=== PATIENT | male | born 1960 | race Caucasian/White ===

== ENCOUNTER 2017-03-26 13:14 | Emergency (ER) | payer OTHER ==
[~2017-03-26 13:14] MED LIST: ISOVUE-370 76%-LOCM 1 ML ONE
[2017-03-26] MEDS ORDERED: Morphine 4 MG/ML VIAL ONE (13:32)
[2017-03-26] MEDS ORDERED: Ketorolac Tromethamine 30 MG/ML VIAL ONE (14:32)
[2017-03-26 14:33] LABS: #Lymphocytes 0.8 thou/uL (1.20-3.40); #Monocytes 0.4 thou/uL (0.11-0.59); #Neutrophils 9.7 thou/uL (1.40-6.50); %Basophils 0.3 % (0.0-1.0); %Eosinophils 0.2 % (0.0-10.0); %Lymphocytes 7.3 % (21.0-51.0); %Monocytes 3.6 % (0.0-10.0); Hematocrit 47.5 % (42.0-52.0); Mean Platelet Volume 6.7 fL (7.4-10.4); Red Blood Cell (RBC) Count 5.28 mill/uL (4.70-6.10)
[2017-03-26 14:48] LABS: Lactic Acid - Sepsis 2.9 mmol/L (0.5-2.2)
[2017-03-26 14:57] LABS: Troponin I Less than 0.010 ng/mL (< 0.028)
[2017-03-26 14:58] LABS: ALT (SGPT) 35 U/L (8-55); AST (SGOT) 25 U/L (5-34); Alkaline Phosphatase 58 U/L (40-150); Anion Gap 13 mmol/L (10-20); BUN (Urea Nitrogen) 15 mg/dL (8.4-25.7); Calc. Creatinine Clearance 0 mL/min (70-130); Calcium 9.6 mg/dL (7.8-10.44); Carbon Dioxide 26 mmol/L (22-29); Chloride 101 mmol/L (98-107); Estimated GFR-MDRD 66; Globulin 3.4 g/dL (2.4-3.5); Lipase 10 U/L (8-78); Protein, Total 7.7 g/dL (6.0-8.3)
--- NOTE | 2017-03-26 15:13 | CT ---
CONTRAST ENHANCED CT IMAGES ABDOMEN AND PELVIS: HISTORY: Left-sided abdominal pain. FINDINGS: Contrast-enhanced CT images of the abdomen and pelvis were obtained after administration of IV contra st. The lung bases are unremarkable. No evidence of free intraperitoneal air is seen. The liver contains numerous hypodense areas compatible with hepatic cysts. Numerous gallstones seen in the gallbladder. The pancreas is unremarkable. No evidence of intrahepatic biliary dilatation is seen. The common bile duct is not dilated. The spleen is unremarkable. No dilated loops of small bowel or colon are seen. No evidence of free intraperitoneal air or fluid is seen. Cortical cyst is seen in the left kidney. No evidence of renal calculi seen. IMPRESSION: Cholelithiasis. POS: [id number]
[2017-03-26 15:59] LABS: Bilirubin Negative (Negative); Blood, Urine Negative (Negative); Glucose, Urine (Dipstick) 100 mg/dL (Negative); Ketone, Urine 15 mg/dL (Negative); Protein, Urine (Dipstick) 30 mg/dL (Neg-Trace)
[2017-03-26 16:01] LABS: Hyaline Casts/LPF 0-3 HYALINE CAST LPF (0-3 Hyaline); RBC/HPF 0-3 HPF (0-3); Squamous Epithelial None Seen HPF (0-3); WBC/HPF 0-3 HPF (0-3)
[2017-03-26 16:05] LABS: Nitrite Positive (Negative)
[2017-03-26] MEDS ORDERED: Potassium Chloride 20 MEQ TAB ONE (16:12)
[2017-03-26 16:13] LABS: Bacteria/HPF Rare-Few HPF (None Seen)
[2017-03-26] MEDS ORDERED: Labetalol HCl 100 MG/20 ML VIAL ONE (18:08)
== END 2017-03-26 20:05 | disposition home or self-care (01) ==
LOC: ERS 13:14
DX: R10.32 Left lower quadrant pain (principal); I10 Essential (primary) hypertension; R10.31 Right lower quadrant pain
CPT/HCPCS: 36415; 74177; 80053; 81003; 81015; 82553; 83605; 83690; 84484; 85025; 87086; 93005; 96361; 96374; 96375; J1885; J2270

== ENCOUNTER 2021-10-16 22:57 | Emergency (ER) | payer BC, OTHER ==
[2021-10-17] MEDS ORDERED: Morphine 4 MG/ML VIAL ONE (01:20)
[2021-10-17] MEDS ORDERED: Ondansetron PF 4 MG/2 ML Vial ONE (01:20)
[2021-10-17 01:46] LABS: #Basophils 0.1 thou/uL (0.0-0.2); #Eosinphils 0.1 thou/uL (0.0-0.7); #Lymphocytes 2.3 thou/uL (1.20-3.40); #Monocytes 0.9 thou/uL (0.11-0.59); #Neutrophils 8.6 thou/uL (1.40-6.50); %Basophils 0.5 % (0.0-1.0); %Eosinophils 0.6 % (0.0-10.0); %Lymphocytes 19.3 % (21.0-51.0); %Monocytes 7.8 % (0.0-10.0); %Neutrophils 71.8 % (42.0-75.0); Hemoglobin 17.1 g/dL (14.0-18.0); Mean Corpuscular HGB CONC 34.6 g/dL (32.0-36.0); Mean Corpuscular Hemoglobin 31.7 pg (27.0-31.0); Mean Corpuscular Volume 91.5 fL (78.0-98.0); Mean Platelet Volume 7.3 fL (7.4-10.4); Platelet Count 281 thou/uL (130-400); RBC Distribution Width 12.4 % (11.5-14.5); Red Blood Cell (RBC) Count 5.41 mill/uL (4.70-6.10)
[2021-10-17 02:05] LABS: ALT (SGPT) 24 U/L (8-55); AST (SGOT) 19 U/L (5-34); Albumin 4.7 g/dL (3.4-4.8); Alkaline Phosphatase 58 U/L (40-110); Anion Gap 15 mmol/L (10-20); BUN (Urea Nitrogen) 16 mg/dL (8.4-25.7); Bilirubin, Total 1.2 mg/dL (0.2-1.2); Calc. Creatinine Clearance 0 mL/min (70-130); Calcium 9.7 mg/dL (7.8-10.44); Carbon Dioxide 28 mmol/L (23-31); Chloride 100 mmol/L (98-107); Estimated GFR 54; Globulin 3.8 g/dL (2.4-3.5); Glucose 124 mg/dL (80-115); Lipase 19 U/L (8-78); Protein, Total 8.5 g/dL (5.8-8.1); Sodium 141 mmol/L (136-145)
[2021-10-17 02:16] LABS: Potassium 2.4 mmol/L (3.5-5.1)
[2021-10-17] MEDS ORDERED: Potassium Chloride 20 MEQ TAB ONE (02:41)
[2021-10-17] MEDS ORDERED: Mag-Al 1200 mg/1200 mg/30 ML UDCUP ONE (02:42)
[2021-10-17] MEDS ORDERED: Lidocaine Viscous Sol 2% 15 ml UD Cup ONE (02:42)
[2021-10-17 04:19] LABS: Bacteria/HPF None Seen HPF (None Seen); Bilirubin Negative (Negative); Blood, Urine Negative (Negative); Clarity Clear (Clear); Glucose, Urine (Dipstick) Normal (Negative); Ketone, Urine Negative (Negative); Leukocyte Negative Leu/uL (Negative); Nitrite Negative (Negative); Protein, Urine (Dipstick) 70 mg/dL (Neg-Trace); RBC/HPF 0-3 HPF (0-3); Specific Gravity, Urine 1.023 (1.002-1.036); Squamous Epithelial 0-3 HPF (0-3); Urobilinogen Normal mg/dL (Less than 2); WBC/HPF 0-3 HPF (0-3)
== END 2021-10-17 03:40 | disposition home or self-care (01) ==
LOC: ERS 22:57
DX: K57.92 Diverticulitis of intestine, part unspecified, without perforation or abscess without bleeding (principal); E87.6 Hypokalemia; I49.3 Ventricular premature depolarization; I10 Essential (primary) hypertension; Z87.442 Personal history of urinary calculi
CPT/HCPCS: 80053; 81003; 81015; 83690; 85025; 87086; 93005; 96361; 96374; 96375; J2270; J2405

== ENCOUNTER 2022-05-29 06:38 | Inpatient (IN) | payer BC ==
[2022-05-29] MEDS ORDERED: Ketorolac Tromethamine 30 MG/ML VIAL ONE (08:54)
[2022-05-29] MEDS ORDERED: Levofloxacin 500 mg/D5W 100 ml Premix Bag ONE (08:54)
[2022-05-29] MEDS ORDERED: Glycopyrrolate 0.2 MG/ML 5 ML SYRINGE ONE (10:27)
[2022-05-29] MEDS ORDERED: NEOSTIGMINE 3 MG/3 ML SYR 3 MG/3 ML SYRINGE ONE (10:27)
[2022-05-29] MEDS ORDERED: ePHEDrine 50 MG/ML VIAL ONE (10:27)
[2022-05-29] MEDS ORDERED: Bupivacaine HCl 0.5%/Epinephrine 1:200,000/PF 30 ml Vial ONE (10:31)
[2022-05-29] MEDS ORDERED: Fentanyl 250 MCG/5 ML VIAL ONE (10:34)
[2022-05-29] MEDS ORDERED: Lidocaine 1% PF 5 ML VIAL ONE (10:49)
[2022-05-29] MEDS ORDERED: PROPOFOL 200 MG/20 ML VIAL ONE (10:49)
[2022-05-29] MEDS ORDERED: Rocuronium Bromide 10 MG/ML (10ML VIAL) ONE (10:49)
[2022-05-29] MEDS ORDERED: Dexamethasone 20 MG/5 ML VIAL ONE (10:49)
[2022-05-29] MEDS ORDERED: Ondansetron PF 4 MG/2 ML Vial ONE (10:49)
[2022-05-29] MEDS ORDERED: Indomethacin 50 MG SUPP ONE (11:18)
[2022-05-29] MEDS ORDERED: Iopamidol 45 ML ONE (11:19)
[2022-05-29] MEDS ORDERED: SUGAMMADEX SODIUM 200 MG/2 ML VIAL ONE (12:49)
[2022-05-29] MEDS ORDERED: Promethazine HCl 25 MG/ML VIAL IM PRN (13:00)
[2022-05-29] MEDS ORDERED: Ondansetron HCl/PF 4 MG/2 ML Vial IVP PRN (13:00)
[2022-05-29] MEDS ORDERED: Ondansetron PF 4 MG/2 ML Vial IVP PRN (13:44)
[2022-05-29] MEDS ORDERED: TETANUS, DIPHTHERIA TOX,ADULT (TDVAX) 0.5 ML VIAL IM ONE (13:44)
[2022-05-29] MEDS ORDERED: hydrALAZINE 20 MG/ML VIAL SLOW IVP PRN (13:44)
[2022-05-29] MEDS ORDERED: Ibuprofen 600 MG TAB PO PRN (13:47)
[2022-05-29] MEDS ORDERED: Acetaminophen 500 MG TAB PO PRN (13:47)
[2022-05-29] MEDS ORDERED: Potassium Chloride 20 MEQ TAB PO SCH (14:00)
[2022-05-29] MEDS ORDERED: Potassium Chloride 20 MEQ in Lactated Ringer's 1,000 ML IV SCH (14:00)
[2022-05-29] MEDS ORDERED: Acetaminophen 500 MG TAB PO SCH (15:00)
[2022-05-29] MEDS ORDERED: Lactated Ringer's 1,000 ML IV SCH (16:15)
[2022-05-29 16:32] LABS: #Lymphocytes 1.1 thou/uL (1.20-3.40); #Monocytes 0.3 thou/uL (0.11-0.59); #Neutrophils 9.3 thou/uL (1.40-6.50); %Basophils 0.2 % (0.0-1.0); %Eosinophils 0.2 % (0.0-10.0); %Lymphocytes 10.3 % (21.0-51.0); %Monocytes 2.4 % (0.0-10.0); %Neutrophils 86.9 % (42.0-75.0); Hemoglobin 12.5 g/dL (14.0-18.0); Mean Corpuscular HGB CONC 35.6 g/dL (32.0-36.0); Mean Corpuscular Hemoglobin 32.1 pg (27.0-31.0); Mean Corpuscular Volume 90.4 fl (78.0-98.0); Platelet Count 262 10x3/uL (130-400); RBC Distribution Width 11.9 % (11.5-14.5); White Blood Cell (WBC) Count 10.7 10x3/uL (4.8-10.8)
[2022-05-29] MEDS ORDERED: Morphine 4 MG/ML VIAL SLOW IVP PRN (17:19)
[2022-05-29 17:22] LABS: Actual Bicarbonate (HCO3a) 16.9 mEq/L (22-28); Base Excess (BEa) -6.1 mEq/L (-2.0 to +3.0); CO2 Tension 26.7 mmHg (35.0-45.0); Calcium, Ionized (arterial) 1.11 mmol/L (1.12-1.30); Carboxyhemoglobin (COHb) 0.3 gm% (0.0-3.0); Hemoglobin (Hb) 12.6 g/dL (14.0-18.0); O2 Tension (PaO2), arterial 91.8 mmHg (> 80.0); Potassium - ABG Lab 3.89 mmol/L (3.70-5.30); pH, Arterial 7.42 (7.35-7.45)
[2022-05-29 17:26] LABS: Puncture Site RRA
[2022-05-29 17:48] LABS: Hemoglobin 11.9 g/dL (14.0-18.0)
[2022-05-29] MEDS: Lactated Ringer's 1,000 ML IV SCH ×2 (18:03→21:43)
[2022-05-29 20:19] LABS: #Lymphocytes 0.9 thou/uL (1.20-3.40); #Monocytes 0.3 thou/uL (0.11-0.59); #Neutrophils 7.5 thou/uL (1.40-6.50); %Basophils 0.2 % (0.0-1.0); %Eosinophils 0.4 % (0.0-10.0); %Lymphocytes 10.6 % (21.0-51.0); %Monocytes 3.3 % (0.0-10.0); %Neutrophils 85.5 % (42.0-75.0); Mean Corpuscular HGB CONC 35.5 g/dL (32.0-36.0); Mean Corpuscular Hemoglobin 32.5 pg (27.0-31.0); Mean Corpuscular Volume 91.6 fl (78.0-98.0); Mean Platelet Volume 7.1 fL (7.4-10.4); Platelet Count 227 10x3/uL (130-400); RBC Distribution Width 11.8 % (11.5-14.5); Red Blood Cell (RBC) Count 3.68 mill/uL (4.70-6.10); White Blood Cell (WBC) Count 8.7 10x3/uL (4.8-10.8)
[2022-05-29] MEDS ORDERED: Famotidine 20 MG TAB PO SCH (21:00)
[2022-05-30] MEDS: traMADol HCl 50 MG TAB PO PRN ×2 (00:41→20:33)
[2022-05-30 03:50] LABS: #Lymphocytes 1.3 thou/uL (1.20-3.40); #Monocytes 0.8 thou/uL (0.11-0.59); %Basophils 0.3 % (0.0-1.0); %Eosinophils 0.2 % (0.0-10.0); %Lymphocytes 12.5 % (21.0-51.0); %Monocytes 8.2 % (0.0-10.0); %Neutrophils 78.9 % (42.0-75.0); Hemoglobin 10.2 g/dL (14.0-18.0); Mean Corpuscular HGB CONC 35.9 g/dL (32.0-36.0); Mean Corpuscular Hemoglobin 32.6 pg (27.0-31.0); Mean Corpuscular Volume 90.8 fl (78.0-98.0); Mean Platelet Volume 6.9 fL (7.4-10.4); Platelet Count 228 10x3/uL (130-400); RBC Distribution Width 11.8 % (11.5-14.5); Red Blood Cell (RBC) Count 3.14 mill/uL (4.70-6.10); White Blood Cell (WBC) Count 10.1 10x3/uL (4.8-10.8)
[2022-05-30 04:10] LABS: ALT (SGPT) 52 U/L (8-55); AST (SGOT) 33 U/L (5-34); Albumin 2.9 g/dL (3.4-4.8); Alkaline Phosphatase 40 U/L (40-110); Anion Gap 15 mmol/L (10-20); BUN (Urea Nitrogen) 20 mg/dL (8.4-25.7); Bilirubin, Total 0.5 mg/dL (0.2-1.2); Calc. Creatinine Clearance 82 mL/min (70-130); Calcium 8.3 mg/dL (7.8-10.44); Carbon Dioxide 21 mmol/L (23-31); Chloride 105 mmol/L (98-107); Estimated GFR 53; Globulin 2.3 g/dL (2.4-3.5); Glucose 126 mg/dL (80-115); Lipase 62 U/L (8-78); Potassium 3.9 mmol/L (3.5-5.1); Protein, Total 5.2 g/dL (5.8-8.1); Sodium 137 mmol/L (136-145)
[2022-05-30] MEDS: Lactated Ringer's 1,000 ML IV SCH ×3 (05:59→20:35)
[2022-05-30] MEDS ORDERED: Iopamidol-370 76% 500 ML 1 ML ONE (08:58)
[2022-05-30 11:51] LABS: #Eosinphils 0.1 thou/uL (0.0-0.7); #Lymphocytes 2.1 thou/uL (1.20-3.40); #Monocytes 1.1 thou/uL (0.11-0.59); %Eosinophils 0.5 % (0.0-10.0); %Lymphocytes 18.4 % (21.0-51.0); %Neutrophils 71.1 % (42.0-75.0); Hemoglobin 9.5 g/dL (14.0-18.0); Mean Corpuscular Hemoglobin 32.2 pg (27.0-31.0); Platelet Count 225 10x3/uL (130-400); RBC Distribution Width 11.9 % (11.5-14.5); Red Blood Cell (RBC) Count 2.93 mill/uL (4.70-6.10); White Blood Cell (WBC) Count 11.3 10x3/uL (4.8-10.8)
[2022-05-30 18:01] LABS: #Eosinphils 0.1 thou/uL (0.0-0.7); #Lymphocytes 1.5 thou/uL (1.20-3.40); #Monocytes 1.1 thou/uL (0.11-0.59); #Neutrophils 9.6 thou/uL (1.40-6.50); %Basophils 0.3 % (0.0-1.0); %Eosinophils 0.5 % (0.0-10.0); %Lymphocytes 11.9 % (21.0-51.0); %Monocytes 8.9 % (0.0-10.0); %Neutrophils 78.4 % (42.0-75.0); Hemoglobin 8.9 g/dL (14.0-18.0); Mean Corpuscular HGB CONC 35.2 g/dL (32.0-36.0); Mean Corpuscular Hemoglobin 32.1 pg (27.0-31.0); Mean Corpuscular Volume 91.1 fl (78.0-98.0); Mean Platelet Volume 6.8 fL (7.4-10.4); Platelet Count 209 10x3/uL (130-400); Red Blood Cell (RBC) Count 2.77 mill/uL (4.70-6.10); White Blood Cell (WBC) Count 12.3 10x3/uL (4.8-10.8)
[2022-05-30] MEDS: Ondansetron ODT 4 MG TAB PO PRN (20:32)
[2022-05-30] MEDS: Albumin 25% 25 GM/100 ML BOT IVPB SCH (20:34)
[2022-05-31] MEDS: Albumin 25% 25 GM/100 ML BOT IVPB SCH ×2 (01:41→08:12)
[2022-05-31] MEDS: traMADol HCl 50 MG TAB PO PRN (01:43)
[2022-05-31] MEDS: Lactated Ringer's 1,000 ML IV SCH ×3 (01:43→17:50)
[2022-05-31] MEDS: Ondansetron ODT 4 MG TAB PO PRN (05:32)
[2022-05-31 06:25] LABS: #Eosinphils 0.1 thou/uL (0.0-0.7); #Lymphocytes 1.4 thou/uL (1.20-3.40); #Neutrophils 7.1 thou/uL (1.40-6.50); %Basophils 0.1 % (0.0-1.0); %Eosinophils 0.6 % (0.0-10.0); %Lymphocytes 14.7 % (21.0-51.0); %Monocytes 10.8 % (0.0-10.0); %Neutrophils 73.9 % (42.0-75.0); Mean Corpuscular Hemoglobin 33.2 pg (27.0-31.0); Mean Corpuscular Volume 92.2 fl (78.0-98.0); Mean Platelet Volume 6.9 fL (7.4-10.4); Platelet Count 184 10x3/uL (130-400); RBC Distribution Width 12.2 % (11.5-14.5); White Blood Cell (WBC) Count 9.5 10x3/uL (4.8-10.8)
[2022-05-31 07:17] LABS: ALT (SGPT) 33 U/L (8-55); AST (SGOT) 18 U/L (5-34); Albumin 3.8 g/dL (3.4-4.8); Alkaline Phosphatase 35 U/L (40-110); Anion Gap 12 mmol/L (10-20); BUN (Urea Nitrogen) 22 mg/dL (8.4-25.7); Bilirubin, Total 0.7 mg/dL (0.2-1.2); Calc. Creatinine Clearance 97 mL/min (70-130); Calcium 8.7 mg/dL (7.8-10.44); Carbon Dioxide 24 mmol/L (23-31); Chloride 104 mmol/L (98-107); Estimated GFR 62; Glucose 119 mg/dL (80-115); Potassium 3.4 mmol/L (3.5-5.1); Protein, Total 5.8 g/dL (5.8-8.1); Sodium 137 mmol/L (136-145)
[2022-05-31] MEDS ORDERED: Morphine 4 MG/ML VIAL SLOW IVP PRN (08:42)
[2022-05-31] MEDS ORDERED: traMADol HCl 50 MG TAB PO PRN ×2 (08:42)
[2022-05-31] MEDS: Metoprolol Tartrate 50 MG TAB PO SCH ×2 (08:54→20:49)
[2022-05-31] MEDS ORDERED: Famotidine/PF 20 mg/2ml Vial SLOW IVP SCH (09:00)
[2022-05-31 09:04] LABS: Magnesium 1.9 mg/dL (1.6-2.6); Phosphorus 3.2 mg/dL (2.3-4.7)
[2022-05-31] MEDS ORDERED: Magnesium 2 GM/50 ML(in water) 2 GM in Premix Bag 1 BAG IVPB SCH (10:30)
[2022-05-31 10:37] LABS: Hemoglobin 7.8 g/dL (14.0-18.0)
[2022-05-31] MEDS ORDERED: Potassium Phosphate 30 MMOL, Magnesium Sulfate 2 GM in Sodium Chloride 0.9% 250 ML 250 ML IVPB SCH (11:30)
[2022-05-31] MEDS: Pantoprazole 40 MG VIAL IVP SCH (11:48)
[2022-05-31] MEDS: Acetaminophen 500 MG TAB PO SCH ×2 (14:51→20:49)
[2022-05-31 17:59] LABS: Hemoglobin 7.5 g/dL (14.0-18.0)
[2022-05-31] MEDS: Senokot S 8.6-50 MG TAB PO SCH (20:50)
[2022-06-01] MEDS: Lactated Ringer's 1,000 ML IV SCH ×2 (00:45→06:47)
[2022-06-01 03:33] LABS: #Basophils 0.1 thou/uL (0.0-0.2); #Eosinphils 0.3 thou/uL (0.0-0.7); #Lymphocytes 2.2 thou/uL (1.20-3.40); #Monocytes 0.7 thou/uL (0.11-0.59); #Neutrophils 4.3 thou/uL (1.40-6.50); %Basophils 0.7 % (0.0-1.0); %Eosinophils 3.7 % (0.0-10.0); %Lymphocytes 29.3 % (21.0-51.0); %Monocytes 9.1 % (0.0-10.0); %Neutrophils 57.1 % (42.0-75.0); Hemoglobin 7.1 g/dL (14.0-18.0); Mean Corpuscular HGB CONC 35.4 g/dL (32.0-36.0); Mean Corpuscular Hemoglobin 33.1 pg (27.0-31.0); Mean Corpuscular Volume 93.3 fl (78.0-98.0); Mean Platelet Volume 7.1 fL (7.4-10.4); Platelet Count 178 10x3/uL (130-400); RBC Distribution Width 12.5 % (11.5-14.5); Red Blood Cell (RBC) Count 2.13 mill/uL (4.70-6.10); White Blood Cell (WBC) Count 7.6 10x3/uL (4.8-10.8)
[2022-06-01 03:48] LABS: ALT (SGPT) 29 U/L (8-55); AST (SGOT) 16 U/L (5-34); Albumin 3.4 g/dL (3.4-4.8); Alkaline Phosphatase 30 U/L (40-110); Bilirubin, Direct 0.4 mg/dL (0.1-0.3); Bilirubin, Total 0.8 mg/dL (0.2-1.2); Protein, Total 5.5 g/dL (5.8-8.1)
[2022-06-01 03:56] LABS: Anion Gap 11 mmol/L (10-20); BUN (Urea Nitrogen) 15 mg/dL (8.4-25.7); Calc. Creatinine Clearance 116 mL/min (70-130); Calcium 8.6 mg/dL (7.8-10.44); Carbon Dioxide 26 mmol/L (23-31); Chloride 107 mmol/L (98-107); Estimated GFR 76; Glucose 100 mg/dL (80-115); Magnesium 2.2 mg/dL (1.6-2.6); Phosphorus 2.8 mg/dL (2.3-4.7); Potassium 3.5 mmol/L (3.5-5.1); Sodium 140 mmol/L (136-145)
[2022-06-01 05:06] VITALS: BMI 34.8
[2022-06-01] MEDS: Acetaminophen 500 MG TAB PO SCH ×3 (05:32→21:48)
[2022-06-01] MEDS ORDERED: Potassium Phosphate 15 MMOL in Sodium Chloride 0.9% 250 ML 250 ML IVPB SCH (07:45)
[2022-06-01] MEDS: Metoprolol Tartrate 50 MG TAB PO SCH ×2 (07:56→21:47)
[2022-06-01] MEDS: Senokot S 8.6-50 MG TAB PO SCH ×2 (07:56→21:47)
[2022-06-01] MEDS: Polyethylene Glycol 3350 17 GM Packet PO SCH (07:56)
[2022-06-01] MEDS: Pantoprazole 40 MG VIAL IVP SCH (07:57)
[2022-06-01] MEDS: Ferrous Sulfate 325 MG TAB PO SCH (17:43)
[2022-06-01] MEDS: Ascorbic Acid 500 mg Chewable Tablet PO SCH (21:49)
[2022-06-02 05:33] LABS: #Eosinphils 0.5 thou/uL (0.0-0.7); #Lymphocytes 2.2 thou/uL (1.20-3.40); #Monocytes 0.8 thou/uL (0.11-0.59); %Basophils 0.3 % (0.0-1.0); %Eosinophils 6.3 % (0.0-10.0); %Lymphocytes 25.3 % (21.0-51.0); %Monocytes 9.5 % (0.0-10.0); %Neutrophils 58.5 % (42.0-75.0); Hemoglobin 8.5 g/dL (14.0-18.0); Mean Corpuscular HGB CONC 35.5 g/dL (32.0-36.0); Mean Corpuscular Hemoglobin 32.4 pg (27.0-31.0); Mean Corpuscular Volume 91.2 fl (78.0-98.0); Mean Platelet Volume 7.1 fL (7.4-10.4); Platelet Count 218 10x3/uL (130-400); RBC Distribution Width 12.6 % (11.5-14.5); Red Blood Cell (RBC) Count 2.61 mill/uL (4.70-6.10); White Blood Cell (WBC) Count 8.6 10x3/uL (4.8-10.8)
[2022-06-02 05:54] LABS: ALT (SGPT) 25 U/L (8-55); AST (SGOT) 18 U/L (5-34); Albumin 3.4 g/dL (3.4-4.8); Alkaline Phosphatase 42 U/L (40-110); Anion Gap 11 mmol/L (10-20); BUN (Urea Nitrogen) 13 mg/dL (8.4-25.7); Bilirubin, Total 1.3 mg/dL (0.2-1.2); Calc. Creatinine Clearance 126 mL/min (70-130); Calcium 8.8 mg/dL (7.8-10.44); Carbon Dioxide 25 mmol/L (23-31); Chloride 105 mmol/L (98-107); Estimated GFR 85; Globulin 2.2 g/dL (2.4-3.5); Glucose 102 mg/dL (80-115); Magnesium 1.8 mg/dL (1.6-2.6); Phosphorus 2.8 mg/dL (2.3-4.7); Potassium 3.4 mmol/L (3.5-5.1); Protein, Total 5.6 g/dL (5.8-8.1); Sodium 138 mmol/L (136-145)
[2022-06-02] MEDS: Ferrous Sulfate 325 MG TAB PO SCH ×2 (07:15→17:39)
[2022-06-02] MEDS: Acetaminophen 500 MG TAB PO SCH ×3 (07:15→23:54)
[2022-06-02] MEDS: Metoprolol Tartrate 50 MG TAB PO SCH ×2 (09:21→20:36)
[2022-06-02] MEDS: Ascorbic Acid 500 mg Chewable Tablet PO SCH ×2 (09:21→20:36)
[2022-06-02] MEDS: Senokot S 8.6-50 MG TAB PO SCH ×2 (09:21→20:35)
[2022-06-02] MEDS: Polyethylene Glycol 3350 17 GM Packet PO SCH ×2 (09:22→09:36)
[2022-06-02] MEDS: Pantoprazole 40 MG VIAL IVP SCH (09:22)
[2022-06-02] MEDS ORDERED: Acetaminophen 500 MG TAB PO SCH (12:45)
[2022-06-03 06:03] LABS: #Basophils 0.1 thou/uL (0.0-0.2); #Eosinphils 0.5 thou/uL (0.0-0.7); #Lymphocytes 1.9 thou/uL (1.20-3.40); #Monocytes 0.8 thou/uL (0.11-0.59); #Neutrophils 5.3 thou/uL (1.40-6.50); %Basophils 0.7 % (0.0-1.0); %Eosinophils 5.8 % (0.0-10.0); %Lymphocytes 22.4 % (21.0-51.0); %Monocytes 9.2 % (0.0-10.0); %Neutrophils 61.9 % (42.0-75.0); Hemoglobin 9.1 g/dL (14.0-18.0); Mean Corpuscular HGB CONC 35.2 g/dL (32.0-36.0); Mean Corpuscular Hemoglobin 32.4 pg (27.0-31.0); Mean Platelet Volume 6.7 fL (7.4-10.4); Platelet Count 261 10x3/uL (130-400); RBC Distribution Width 12.8 % (11.5-14.5); Red Blood Cell (RBC) Count 2.81 mill/uL (4.70-6.10); White Blood Cell (WBC) Count 8.5 10x3/uL (4.8-10.8)
[2022-06-03] MEDS: Acetaminophen 500 MG TAB PO SCH (06:15)
[2022-06-03 07:56] VITALS: BP 157/94; TEMP 98.1
[2022-06-03] MEDS: Ferrous Sulfate 325 MG TAB PO SCH (08:48)
[2022-06-03] MEDS: Ascorbic Acid 500 mg Chewable Tablet PO SCH (08:48)
[2022-06-03] MEDS: Metoprolol Tartrate 50 MG TAB PO SCH (08:49)
[2022-06-03] MEDS: Senokot S 8.6-50 MG TAB PO SCH (08:49)
[2022-06-03] MEDS: Polyethylene Glycol 3350 17 GM Packet PO SCH (08:49)
[2022-06-03] MEDS ORDERED: hydrALAZINE 20 MG/ML VIAL SLOW IVP PRN (10:15)
== END 2022-06-03 10:15 | disposition home or self-care (01) | DRG 417 ==
LOC: SDC 06:38 → SURG B 14:05 → CCU 17:27 → OBSVTOIN 05-30 01:52 → SURG A 06-01 12:37
PROVIDERS: ADMIT Specialist; ATTEND Specialist
PROC: 0FT44ZZ Resection of Gallbladder, Percutaneous Endoscopic Approach (ICD-10-PCS; principal; 2022-05-29)
PROC: 0FC98ZZ Extirpation of Matter from Common Bile Duct, Via Natural or Artificial Opening Endoscopic (ICD-10-PCS; 2022-05-29)
PROC: 30233N1 Transfusion of Nonautologous Red Blood Cells into Peripheral Vein, Percutaneous Approach (ICD-10-PCS; 2022-06-01)
DX: K80.66 Calculus of gallbladder and bile duct with acute and chronic cholecystitis without obstruction (principal); K85.10 Biliary acute pancreatitis without necrosis or infection; D62 Acute posthemorrhagic anemia; N17.9 Acute kidney failure, unspecified; K91.841 Postprocedural hemorrhage of a digestive system organ or structure following other procedure; Z20.822 Contact with and (suspected) exposure to COVID-19; I10 Essential (primary) hypertension; E87.6 Hypokalemia; E83.42 Hypomagnesemia; E83.39 Other disorders of phosphorus metabolism; Y83.8 Other surgical procedures as the cause of abnormal reaction of the patient, or of later complication, without mention of misadventure at the time of the procedure; Z79.899 Other long term (current) drug therapy
CPT/HCPCS: 36415; 36416; 36430; 36600; 71045; 71275; 74177; 74330; 80048; 80053; 80076; 82805; 83690; 83735; 84100; 84484; 85025; 86850; 86900; 86901; 88304; 93005; 93010; 93970; C1889; C9113; G0378; J1100; J1885; J1956; J2270; J2405; J2704; J3010; J3475; J3490; J7050; J7120; P9016; P9047; Q0162; Q9967; S0028; U0003; U0005

== ENCOUNTER 2024-11-16 10:13 | Outpatient (CLI) | payer MEDICARE ==
[2024-11-16 12:20] LABS: #Basophils 0.09 10x3/uL (0.0-0.2); #Eosinophils 0.50 10x3/uL (0.0-0.7); #Monocytes 0.79 10x3/uL (0.11-0.59); #Neutrophils 3.37 10x3/uL (1.40-6.50); %Basophils 1.3 % (0.0-1.0); %Eosinophils 7.2 % (0.0-10.0); %Lymphocytes 31.5 % (21.0-51.0); %Monocytes 11.3 % (0.0-10.0); %Neutrophils 48.3 % (42.0-75.0); Hematocrit 45.3 % (42.0-52.0); Hemoglobin 15.8 g/dL (14.0-18.0); Mean Corpuscular Hemoglobin 30.4 pg (27.0-31.0); Mean Corpuscular Volume 87.3 fL (78.0-98.0); Platelet Count 215 10x3/uL (130-400); Red Blood Cell (RBC) Count 5.19 mill/uL (4.70-6.10); White Blood Cell (WBC) Count 6.98 10x3/uL (4.8-10.8)
[2024-11-16 12:37] LABS: Bacteria/HPF None Seen HPF (None Seen); Glucose, Urine (Dipstick) Normal (Negative); Leukocyte 75 Leu/uL (Negative); Protein, Urine (Dipstick) Negative (Neg-Trace); RBC/HPF None Seen HPF (0-3); Specific Gravity, Urine 1.013 (1.002-1.036)
[2024-11-16 12:41] LABS: INR-International Normal Ratio 1.0; Prothrombin Time 13.5 sec (12.0-14.7)
[2024-11-16 12:50] LABS: Anion Gap 16 mmol/L (10-20); BUN (Urea Nitrogen) 20 mg/dL (8.4-25.7); Calc. Creatinine Clearance 0 mL/min (70-130); Calcium 9.4 mg/dL (7.8-10.44); Carbon Dioxide 22 mmol/L (23-31); Chloride 104 mmol/L (98-107); Glucose 108 mg/dL (80-115); Potassium 3.8 mmol/L (3.5-5.1); Sodium 138 mmol/L (136-145)
== END 2024-11-16 10:14 | disposition home or self-care (01) ==
LOC: LABBT 10:13
PROVIDERS: ATTEND Orthopaedic Surgery
DX: Z01.818 Encounter for other preprocedural examination (principal); M17.12 Unilateral primary osteoarthritis, left knee
CPT/HCPCS: 71046; 80048; 81001; 85025; 85610; 87081

== ENCOUNTER 2024-11-16 11:55 | Outpatient (CLI) | payer MEDICARE | END 2024-11-16 11:56 | disposition home or self-care (01) | LOC: CT 11:55 | PROVIDERS: ATTEND Orthopaedic Surgery | DX: M17.12 Unilateral primary osteoarthritis, left knee (principal) | CPT/HCPCS: 71046; 80048; 81001; 85025; 85610; 87081 ==

== ENCOUNTER 2024-11-23 06:22 | Day surgery (SDC) | payer MEDICARE ==
[2024-11-16 11:00] VITALS: BMI 37.3
[2024-11-23] MEDS ORDERED: Tranexamic Acid 1,000 MG/10 ML VIAL ONE ×2 (06:32→10:54)
[2024-11-23] MEDS ORDERED: VANCOMYCIN 2 GRAM/400 ML BAG ONE (06:33)
[2024-11-23] MEDS ORDERED: CEFAZOLIN 2 GM VIAL ONE (06:33)
[2024-11-23] MEDS ORDERED: Bupivacaine 0.25% HCL 30 ML VIAL ONE (06:39)
[2024-11-23] MEDS ORDERED: PROPOFOL 20 ML ONE (07:00)
[2024-11-23] MEDS ORDERED: fentaNYL PF 100 MCG/2 ML SYRINGE ONE ×2 (07:00→09:10)
[2024-11-23] MEDS ORDERED: Ondansetron PF 4 MG/2 ML Vial IVP PRN ×2 (08:15→10:25)
[2024-11-23] MEDS ORDERED: HYDROcodone/Acetaminophen 10/325 mg Tablet PO PRN ×2 (08:15)
[2024-11-23] MEDS ORDERED: Ropivacaine 0.2% 550 ML 550 ML NERVE BLCK SCH (08:15)
[2024-11-23] MEDS ORDERED: Ropivacaine 0.5% HCl/PF (150 MG/30 ML VIAL) ONE (08:28)
[2024-11-23] MEDS ORDERED: PHENYLEPHRINE-NS 100 MCG/ML 10 ML SYRINGE ONE (08:58)
[2024-11-23] MEDS ORDERED: Acetaminophen 325 MG TAB PO PRN (10:25)
[2024-11-23] MEDS ORDERED: diphenhydrAMINE 25 MG CAP PO PRN (10:25)
[2024-11-23] MEDS: Ketorolac Tromethamine 30 MG (1 mL) VIAL IVP SCH (14:11)
[2024-11-23] MEDS: VANCOMYCIN 2 GRAM/400 ML Premix BAG IVPB SCH (18:12)
[2024-11-23] MEDS: Senokot S 8.6-50 MG TAB PO SCH (21:27)
[2024-11-23] MEDS: Aspirin 81 mg Enteric Coated Tablet PO SCH (21:27)
[2024-11-23] MEDS: Ferrous Gluconate 324 MG TAB PO SCH (21:29)
[2024-11-24 04:36] LABS: Hematocrit 37.1 % (42.0-52.0); Hemoglobin 13.1 g/dL (14.0-18.0); Mean Corpuscular Hemoglobin 31.3 pg (27.0-31.0); Mean Corpuscular Volume 88.5 fL (78.0-98.0); Platelet Count 209 10x3/uL (130-400); Red Blood Cell (RBC) Count 4.19 mill/uL (4.70-6.10); White Blood Cell (WBC) Count 12.84 10x3/uL (4.8-10.8)
[2024-11-24 08:33] VITALS: BP 113/70; TEMP 97.6
[2024-11-24] MEDS ORDERED: Non-Formulary Item 1 EACH (Metoprolol Succinate [Toprol Xl] 200 MG Tab.Er.24h) PO SCH (09:00)
[2024-11-24] MEDS ORDERED: Non-Formulary Item 1 EACH (Losartan Potassium [Cozaar] 100 MG Tablet) PO SCH (09:00)
[2024-11-24] MEDS: Losartan 25 MG TAB PO SCH (09:56)
[2024-11-24] MEDS: Multivitamin W/ Minerals 1 TAB PO SCH (09:56)
[2024-11-24] MEDS: Metoprolol Succinate XL 100 MG ER.TAB PO SCH (09:57)
== END 2024-11-24 12:37 | disposition home or self-care (01) ==
LOC: SDC 06:22 → SURG B 13:02 → SDC 11-24 12:37
PROVIDERS: ATTEND Orthopaedic Surgery
PROC: 0SRD0JZ Replacement of Left Knee Joint with Synthetic Substitute, Open Approach (ICD-10-PCS; principal; 2024-11-23)
DX: M17.12 Unilateral primary osteoarthritis, left knee (principal); I10 Essential (primary) hypertension; E78.5 Hyperlipidemia, unspecified; Z79.899 Other long term (current) drug therapy
CPT/HCPCS: 0055T; 27447; 64447; 36415; 85027; A4306; C1713; C1776; C1889; J0665; J1100; J1885; J2250; J2704; J2795; J3375